=== PATIENT | male | born 1945 | race Caucasian/White ===

== ENCOUNTER → 2020-10-28 | Outpatient (REF) | payer MEDICARE ==
[~2020-10-28] MED LIST: ALLOPURINOL100 MG PO; BENAZEPRIL40 M1 PO; BENZONATATE200 MG PO; FLONASE NASAL50 MCG; MAXZIDE-2537.5 MG/TA PO; MUCINEX600 MG PO; PREDNISONE10 MG PO; SIMVASTATIN40 MG PO; TRIAM/HCTZ1 CAP PO
[2020-10-28 13:02] LABS: HEMATOCRIT 41.7 % (39.0-50.0); HEMOGLOBIN 13.2 g/dl (14.0-18.0); IMMATURE GRANULOCYTES 0.5 % (0.0-5.0); MEAN CELL VOLUME 94.1 fL CALC (80.0-100.0); MEAN CORPUSCULAR HGB 29.8 pG CALC (26.0-32.0); MEAN CORPUSCULAR HGB CONC 31.7 g/dL CAL (32.0-36.0); NEUT# 4.15 thou/uL (1.82-7.42); RED BLOOD COUNT 4.43 mill/uL (4.70-6.10); RED CELL DISTRI WIDTH 13.1 % (11.5-15.5)
[2020-10-28 13:07] LABS: URINE BILIRUBIN - DIPSTICK NEGATIVE (NEGATIVE); URINE BLOOD DIPSTICK NEGATIVE (NEGATIVE); URINE COLOR YELLOW; URINE GLUCOSE - DIPSTICK NEGATIVE (NEGATIVE); URINE KETONE NEGATIVE (NEGATIVE); URINE PH 5.5 (4.5-8.0); URINE PROTEIN - DIPSTICK NEGATIVE (NEG-TRACE); URINE UROBILINOGEN - DIPSTICK 0.2 E.U./dL (0.2)
[2020-10-28 13:15] LABS: URINE LEUK ESTERASE NEGATIVE (NEGATIVE); URINE NITRITE - DIPSTICK NEGATIVE (Negative)
[2020-10-28 13:24] LABS: ALBUMIN 4.8 g/dL (3.2-5.0); CREATININE 1.8 mg/dL (0.7-1.3)
[2020-10-28 14:04] LABS: POTASSIUM 5.2 mmol/l (3.5-5.1)
== END | disposition home or self-care (01) ==
LOC: LAB 11:59
PROVIDERS: ATTEND Internal Medicine Nephrology
DX: N18.30 Chronic kidney disease, stage 3 unspecified (principal); I12.9 Hypertensive chronic kidney disease with stage 1 through stage 4 chronic kidney disease, or unspecified chronic kidney disease; N25.81 Secondary hyperparathyroidism of renal origin; M10.9 Gout, unspecified; D63.1 Anemia in chronic kidney disease